=== PATIENT | female | born 1970 | race African-American/Black ===

== ENCOUNTER 2021-11-06 16:23 | Emergency (ER) | payer BC ==
[2021-11-06 16:45] VITALS: BP 126/81; PULSE 87; TEMP 98; BMI 39.5
== END 2021-11-06 18:33 | disposition home or self-care (01) ==
LOC: JER 16:23 → JERFT 16:23
DX: L02.31 Cutaneous abscess of buttock (principal)
CPT/HCPCS: 87070; 87186; 87205; 99282-25